=== PATIENT | male | born 1985 | race Caucasian/White ===

== ENCOUNTER 2016-10-08 18:52 | Emergency (ER) | payer SELFPAY ==
[2016-10-08] MEDS ORDERED: LORazepam 2 MG/ML Syringe IVPUSH ONE ×2 (19:22→19:31)
[2016-10-08] MEDS: LORazepam 2 MG/ML Syringe ONE ×2 (19:24→20:09)
[2016-10-08] MEDS ORDERED: levETIRAcetam 500 MG in Sodium Chloride 0.9% 100 ML IV ONE (19:25)
[2016-10-08] MEDS ORDERED: MVI, Adult with Vitamin K 10 ML, Thiamine 100 MG, Folic Acid 1 MG in Lactated Ringers 1... IV ONE ×4 (19:27)
[2016-10-08 19:52] LABS: CHLORIDE,CL 105 mmol/L (101-111); SODIUM,NA 140 mmol/L (135-145)
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
[2016-10-08 20:04] LABS: ACETAMINOPHEN < 10
[2016-10-08 21:27] VITALS: BP 98/62
== END 2016-10-08 21:45 ==
LOC: DL.ED 18:52
DX: R56.9 Unspecified convulsions (principal); R45.851 Suicidal ideations; S40.211A Abrasion of right shoulder, initial encounter; F10.120 Alcohol abuse with intoxication, uncomplicated; Y90.6 Blood alcohol level of 120-199 mg/100 ml; F41.9 Anxiety disorder, unspecified; F17.210 Nicotine dependence, cigarettes, uncomplicated; Y04.0XXA Assault by unarmed brawl or fight, initial encounter
CPT/HCPCS: 36415; 70450; 73030; 80053; 80305; 81001; 82150; 83690; 85025; 96361; 96374; 96375; 99285; G0480; J1953; J2060; J3411; J7050; J7120; J3490

== ENCOUNTER 2016-11-10 16:52 | Emergency (ER) | payer SELFPAY ==
--- NOTE | 2016-11-10 16:58 | EDM.PDOC ---
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 Police report patient has been drinking ETOH and took a "one bottle: of Depakote 250mg and "several" Trazodone tablets of unknown strength. Patient is not willing to provide any history. Old reports indicate patient has history of prior suicide attempt and mental illness. Severity: Severe Improves with: Reports: None Worsens with: Reports: None Associated Symptoms: Reports: No Other Symptoms - Related Data Allergies Allergy/AdvReac Type Severity Reaction Status Date / Time No Known Allergies Allergy Verified 10/08/16 19:02 Home Meds: Home Meds Divalproex Sodium [Divalproex Sodium] 250 mg PO Q8H 11/10/16 [History] FLUoxetine [PROzac] 10 mg PO DAILY 11/10/16 [History] Ibuprofen [Ibuprofen] 11/10/16 [History] Pantoprazole [ProTONIX] 11/10/16 [History] Past Medical History Neurological History: Reports: Seizure 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 Tried many different medications. Currently on nothing. Psychiatric History: Reports: Anxiety Social & Family History - Tobacco Use Smoking Status *Q: Current Every Day Smoker Years of Tobacco use: 10 Packs/Tins Daily: 0.5 Used Tobacco, but Quit: No Second Hand Smoke Exposure: No - Caffeine Use Caffeine Use: Reports: Coffee, Energy Drinks, Soda - Recreational Drug Use Recreational Drug Use: No ED ROS GENERAL - Review of Systems Review Of Systems: See Below (patient unwilling to answer) ED EXAM, BEHAVIORAL HEALTH - Physical Exam Exam: See Below Exam Limited By: No Limitations General Appearance: Alert, WD/WN, No Apparent Distress Eye Exam: Bilateral Eye: Normal Inspection Ears: Normal External Exam, Normal Canal, Hearing Grossly Normal, Normal TMs Nose: Normal Inspection, Normal Mucosa, No Blood Throat/Mouth: Normal Inspection, Normal Lips, Normal Teeth, Normal Gums, Normal Oropharynx, Normal Voice, No Airway Compromise Head: Atraumatic, Normocephalic Neck: Normal Inspection, Supple, Non-Tender, Full Range of Motion Respiratory/Chest: No Respiratory Distress, Lungs Clear, Normal Breath Sounds, No Accessory Muscle Use, Chest Non-Tender Cardiovascular: Normal Peripheral Pulses, Regular Rate, Rhythm, No Edema, No Gallop, No JVD, No Murmur, No Rub GI/Abdominal: Other (mild epigastric tenderness.) Back Exam: Normal Inspection, Full Range of Motion, NT Extremities: Normal Inspection, Normal Range of Motion, Non-Tender, Normal Capillary Refill, No Pedal Edema Neurological: Alert, Normal Mood/Affect, CN II-XII Intact, Normal Cognition, Normal Gait, Normal Reflexes, No Motor/Sensory Deficits, Oriented x 3 Psychiatric: Other (flat affect, depressed mood, uncooperative suicidal.) Skin Exam: Warm, Dry, Intact, Normal color, No rash EKG INTERPRETATION EKG Date: 11/10/16 Time: 17:00 Rhythm: other (sinus rhythm) Rate (beats/min): 89 [place]: normal P-wave: present QRS: normal ST-T: normal QT: normal COURSE, BEHAVIORAL HEALTH COMP - Course Vital Signs: Last Vital Signs Temp 36.7 C 11/10/16 18:06 Pulse 89 11/10/16 18:06 Resp 13 11/10/16 18:06 BP 112/77 11/10/16 18:06 Pulse Ox 99 11/10/16 18:06 Orders, Labs, Meds: Active Orders 24 hr Category Date Time Status Depression Screening, Adult [RC] ASDIRECTED Care 11/10/16 17:02 Active EKG 12 Lead [EKG Documentation Completion] [RC] STAT Care 11/10/16 17:02 Active Peripheral IV Care [RC] . DIRECTED Care 11/10/16 17:03 Active Sodium Chloride 0.9% [Saline Flush] Med 11/10/16 17:03 Active 10 ml FLUSH ASDIRECTED PRN Peripheral IV Insertion Adult [OM.PC] Stat Oth 11/10/16 17:02 Ordered Suicide Precautions [OM.PC] Routine Oth 11/10/16 17:02 Ordered Medication Orders Sodium Chloride (Saline Flush) 10 ml FLUSH ASDIRECTED PRN PRN Reason: Keep Vein Open Last Admin: 11/10/16 18:01 Dose: 10 ml Laboratory Tests 0611/10/16 11/10/16 Range/Units 17:03 17:03 17:14 WBC 5.7 (5.0-10.0) 10^3/uL RBC 5.20 (4.6-6.2) 10^6/uL Hgb 14.9 (14.0-18.0) g/dL Hct 42.3 (40.0-54.0) % MCV 81.3 (80-100) fL MCH 28.7 (27.0-34.0) pg MCHC 35.2 H (33.0-35.0) g/dL Plt Count 258 (150-450) 10^3/uL Neut % (Auto) 61.4 (42.2-75.2) % Lymph % (Auto) 29.2 (20.5-50.1) % [place] % (Auto) 7.7 (2-8) % Eos % (Auto) 1.2 (1.0-3.0) % Baso % (Auto) 0.5 (0.0-1.0) % PT (9.0-12.0) SEC INR (0.9-1.2) APTT (22.0-34.0) SEC Sodium (135-145) mmol/L Potassium (3.6-5.0) mmol/L Chloride (101-111) mmol/L Carbon Dioxide (21.0-31.0) mmol/L Anion Gap BUN (7-18) mg/dL Creatinine (0.6-1.3) mg/dL Est Cr Clr Drug Dosing mL/min Estimated GFR (MDRD) BUN/Creatinine Ratio Glucose (74-105) mg/dL Calcium (8.4-10.2) mg/dl Total Bilirubin (0.2-1.0) mg/dL AST (10-42) IU/L ALT (10-60) IU/L Alkaline Phosphatase (42-121) IU/L Ammonia (11-35) umol/L Troponin I (0.00-0.02) ng/ml Total Protein (6.7-8.2) g/dl Albumin (3.2-5.5) g/dl Globulin Albumin/Globulin Ratio Amylase (28-100) U/L Lipase (22-51) U/L Urine Color Light yellow (YELLOW) Urine Appearance Clear (CLEAR) Urine pH 5.5 (5.0-9.0) Ur Specific [place] <= 1.005 (1.005-1.030) Urine Protein Negative (NEGATIVE) Urine Glucose (UA) Negative (NEGATIVE) Urine Ketones Negative (NEGATIVE) Urine Occult Blood Negative (NEGATIVE) Urine Nitrite Negative (NEGATIVE) Urine Bilirubin Negative (NEGATIVE) Urine Urobilinogen 0.2 (0.2-1.0) mg/dL Ur Leukocyte Esterase Negative (NEGATIVE) Urine RBC Not seen /HPF Urine WBC Not seen (0-5/HPF) /HPF Urine Mucus Rare /LPF Salicylates Urine Opiates Screen Negative (NEGATIVE) Ur Oxycodone Screen Negative (NEGATIVE) Urine Methadone Screen Negative (NEGATIVE) Acetaminophen Ur Barbiturates Screen Negative (NEGATIVE) U Tricyclic Antidepress Negative (NEGATIVE) Ur Phencyclidine Scrn Negative (NEGATIVE) Ur Amphetamine Screen Negative (NEGATIVE) U Methamphetamines Scrn Negative (NEGATIVE) Urine MDMA Screen Negative (NEGATIVE) U Benzodiazepines Scrn Negative (NEGATIVE) Urine Cocaine Screen Negative (NEGATIVE) U Marijuana (THC) Screen Negative (NEGATIVE) Ethyl Alcohol mg/dL 11/10/16 11/10/16 11/10/16 Range/Units 17:14 17:14 17:14 WBC (5.0-10.0) 10^3/uL RBC (4.6-6.2) 10^6/uL Hgb (14.0-18.0) g/dL Hct (40.0-54.0) % MCV (80-100) fL MCH (27.0-34.0) pg MCHC (33.0-35.0) g/dL Plt Count (150-450) 10^3/uL Neut % (Auto) (42.2-75.2) % Lymph % (Auto) (20.5-50.1) % [place] % (Auto) (2-8) % Eos % (Auto) (1.0-3.0) % Baso % (Auto) (0.0-1.0) % PT 10.5 (9.0-12.0) SEC INR 1.0 (0.9-1.2) APTT 24.6 (22.0-34.0) SEC Sodium 137 (135-145) mmol/L Potassium 3.6 (3.6-5.0) mmol/L Chloride 103 (101-111) mmol/L Carbon Dioxide 24.0 (21.0-31.0) mmol/L Anion Gap 13.6 BUN 10 (7-18) mg/dL Creatinine 0.9 (0.6-1.3) mg/dL Est Cr Clr Drug Dosing 101.01 mL/min Estimated GFR (MDRD) > 60 BUN/Creatinine Ratio 11.11 Glucose 100 (74-105) mg/dL Calcium 9.4 (8.4-10.2) mg/dl Total Bilirubin 0.4 (0.2-1.0) mg/dL AST 17 (10-42) IU/L ALT 15 (10-60) IU/L Alkaline Phosphatase 67 (42-121) IU/L Ammonia 33 (11-35) umol/L Troponin I < 0.02 (0.00-0.02) ng/ml Total Protein 7.2 (6.7-8.2) g/dl Albumin 4.5 (3.2-5.5) g/dl Globulin 2.7 Albumin/Globulin Ratio 1.67 Amylase 51 (28-100) U/L Lipase 20 L (22-51) U/L Urine Color (YELLOW) Urine Appearance (CLEAR) Urine pH (5.0-9.0) Ur Specific [place] (1.005-1.030) Urine Protein (NEGATIVE) Urine Glucose (UA) (NEGATIVE) Urine Ketones (NEGATIVE) Urine Occult Blood (NEGATIVE) Urine Nitrite (NEGATIVE) Urine Bilirubin (NEGATIVE) Urine Urobilinogen (0.2-1.0) mg/dL Ur Leukocyte Esterase (NEGATIVE) Urine RBC /HPF Urine WBC (0-5/HPF) /HPF Urine Mucus /LPF Salicylates < 4 Urine Opiates Screen (NEGATIVE) Ur Oxycodone Screen (NEGATIVE) Urine Methadone Screen (NEGATIVE) Acetaminophen < 10 Ur Barbiturates Screen (NEGATIVE) U Tricyclic Antidepress (NEGATIVE) Ur Phencyclidine Scrn (NEGATIVE) Ur Amphetamine Screen (NEGATIVE) U Methamphetamines Scrn (NEGATIVE) Urine MDMA Screen (NEGATIVE) U Benzodiazepines Scrn (NEGATIVE) Urine Cocaine Screen (NEGATIVE) U Marijuana (THC) Screen (NEGATIVE) Ethyl Alcohol 71 mg/dL Medications Generic Name Dose Route Start Last Admin Trade Name Freq PRN Reason Stop Dose Admin Sodium Chloride 10 ml 11/10/16 17:03 11/10/16 18:01 Saline Flush FLUSH 10 ml ASDIRECTED PRN Administration Keep Vein Open Discontinued Medications Generic Name Dose Route Start Last Admin Trade Name Cate PRN Reason Stop Dose Admin Charcoal 50 gm 11/10/16 17:04 11/10/16 17:49 Actidose-Aqua PO 11/10/16 17:05 50 gm ONETIME ONE Administration Sodium Chloride 1,000 mls @ 999 mls/hr 11/10/16 17:04 11/10/16 18:01 Normal Saline IV 11/10/16 18:04 999 mls/hr .BOLUS ONE Administration Departure - Departure Time of Disposition: 19:00 Disposition: DC/Tfer to Acute Hospital 02 Condition: serious Clinical Impression: Suicide attempt by multiple drug overdose Qualifiers: Encounter type: initial encounter Qualified Code(s): T50.902A - Poisoning by unspecified drugs, medicaments and biological substances, intentional self-harm , initial encounter - Discharge Information Forms: ED Department Discharge, Interfacility Transfer EMTALA - My Orders Last 24 Hours: My Active Orders 11/10/16 17:02 Depression Screening, Adult [RC] ASDIRECTED EKG 12 Lead [EKG Documentation Completion] [RC] STAT Peripheral IV Insertion Adult [OM.PC] Stat Suicide Precautions [OM.PC] Routine 11/10/16 17:03 Peripheral IV Care [RC] . DIRECTED Sodium Chloride 0.9% [Saline Flush] 10 ml FLUSH ASDIRECTED PRN - Assessment/Plan Last 24 Hours: My Active Orders 11/10/16 17:02 Depression Screening, Adult [RC] ASDIRECTED EKG 12 Lead [EKG Documentation Completion] [RC] STAT Peripheral IV Insertion Adult [OM.PC] Stat Suicide Precautions [OM.PC] Routine 11/10/16 17:03 Peripheral IV Care [RC] . DIRECTED Sodium Chloride 0.9% [Saline Flush] 10 ml FLUSH ASDIRECTED PRN
[2016-11-10] MEDS ORDERED: Sodium Chloride 0.9% 10 ML Syringe FLUSH PRN (17:03)
[2016-11-10] MEDS ORDERED: Sodium Chloride 0.9% 1,000 ML IV ONE (17:04)
[2016-11-10] MEDS ORDERED: Activated Charcoal/Water Susp 50 GM/240 ML Tube PO ONE (17:04)
[2016-11-10 17:41] LABS: CHLORIDE,CL 103 mmol/L (101-111); SODIUM,NA 137 mmol/L (135-145)
[2016-11-10 17:46] LABS: ACETAMINOPHEN < 10
[2016-11-10 19:08] VITALS: BP 112/69
[2016-11-10] MEDS ORDERED: LORazepam 2 MG/ML Syringe IM ONE (19:10)
[2016-11-10] MEDS ORDERED: diphenhydrAMINE 50 MG/ML SDV IM ONE (19:10)
[2016-11-10] MEDS ORDERED: Haloperidol Lactate 5 MG/ML SDV IM ONE (19:10)
--- NOTE | 2016-12-02 11:43 | EKG ---
11/10/2016 - FRAN CARDENAS - EKG is sinus rhythm with a rate of 89, normal MA interval, normal axis. There is a nonspecific intraventricular conduction delay. EKG otherwise within normal limits. [facility] /[id number]
== END 2016-11-10 19:25 ==
LOC: DL.ED 16:52
DX: T42.6X2A Poisoning by other antiepileptic and sedative-hypnotic drugs, intentional self-harm, initial encounter (principal); F41.9 Anxiety disorder, unspecified; F17.210 Nicotine dependence, cigarettes, uncomplicated; Z79.899 Other long term (current) drug therapy
CPT/HCPCS: 36415; 80053; 80305; 81001; 82140; 82150; 83690; 84484; 85025; 85610; 85730; 93005; 93010; 96360; 96372; 99285; G0480; J1200; J1630; J2060; J7030; J7050

== ENCOUNTER 2017-02-07 16:29 | Emergency (ER) | payer OTHER ==
[2017-02-07] MEDS ORDERED: Lidocaine 2% Jelly 10 ML Urojet MUCMEM ONE (16:39)
[2017-02-07] MEDS ORDERED: LORazepam 1 MG Tab PO ONE (16:40)
[2017-02-07] MEDS ORDERED: Cephalexin 500 MG Cap PO ONE (16:40)
[2017-02-07] MEDS ORDERED: Lidocaine 1% 30 ML SDV INJECT ONE (16:59)
[2017-02-07] MEDS ORDERED: levETIRAcetam 2,000 MG in Sodium Chloride 0.9% 100 ML IV ONE (17:06)
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
[2017-02-07 17:55] LABS: CHLORIDE,CL 105 mmol/L (101-111); SODIUM,NA 138 mmol/L (135-145)
[2017-02-07] MEDS ORDERED: ceFAZolin 1 GM in Premix Bag 1 BAG IV ONE (17:57)
--- NOTE | 2017-02-07 17:59 | EDM.PDOC ---
Scribed by Megan Mcdonald 02/07/17 0181 for Jasbir Barros MD ED HPI GENERAL MEDICAL PROBLEM - General Chief Complaint: Trauma Stated Complaint: BY AMBULANCE Time Seen by Provider: 02/07/17 16:35 Source of Information: Reports: Patient, EMS, RN, RN Notes Reviewed History Limitations: Reports: No Limitations - History of Present Illness INITIAL COMMENTS - FREE TEXT/NARRATIVE: Arrives by ambulance from work with a complaint of left 3rd and 4th finger injuries sustained when his hand went through a conveyer belt that he was attempting to un-jam. Denies any other injury. Paramedics report that the patient had a witnessed seizure for 1 minute just as they arrived at the scene. Patient had a second witnessed seizure upon arrival to the emergency department lasting 3 minutes. Rates pain 10/10. Nothing makes it better or worse. Last tetanus was approximately 5 to 10 years ago. Patient denies tetanus vaccine at this time. 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 Patient has a history of seizure disorder but has chosen not to take seizure medication for the past several months. He does not know when his last seizure was. Onset: Today Location: Reports: Upper Extremity, Right Quality: Reports: Sharp Severity: Severe Improves with: Reports: None Worsens with: Reports: None Associated Symptoms: Reports: No Other Symptoms - Related Data Allergies Allergy/AdvReac Type Severity Reaction Status Date / Time No Known Allergies Allergy Verified 10/08/16 19:02 Home Meds: Home Meds Divalproex Sodium [Divalproex Sodium] 250 mg PO Q8H 11/10/16 [History] FLUoxetine [PROzac] 10 mg PO DAILY 11/10/16 [History] Ibuprofen [Ibuprofen] 800 mg PO Q8H 11/10/16 [History] Pantoprazole [ProTONIX] 40 mg PO DAILY 11/10/16 [History] Past Medical History Gastrointestinal History: Reports: GERD Neurological History: Reports: Seizure 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 Tried many different medications. Currently on nothing. Psychiatric History: Reports: Anxiety Social & Family History - Family History Family Medical History: Noncontributory - Tobacco Use Smoking Status *Q: Current Every Day Smoker Years of Tobacco use: 10 Packs/Tins Daily: 0.5 Used Tobacco, but Quit: No Second Hand Smoke Exposure: No - Caffeine Use Caffeine Use: Reports: Coffee, Energy Drinks, Soda - Recreational Drug Use Recreational Drug Use: No Recreational Drug Type: Reports: Marijuana/Hashish Review of Systems - Review of Systems Review Of Systems: ROS reveals no pertinent complaints other than HPI. ED EXAM, GENERAL - Physical Exam Exam: See Below Exam Limited By: No Limitations General Appearance: Alert, WD/WN, No Apparent Distress Eye Exam: Bilateral Eye: Normal Inspection Ears: Normal External Exam, Normal Canal, Hearing Grossly Normal, Normal TMs Nose: Normal Inspection, Normal Mucosa, No Blood Throat/Mouth: Normal Inspection, Normal Lips, Normal Teeth, Normal Gums, Normal Oropharynx, Normal Voice, No Airway Compromise Head: Atraumatic, Normocephalic Neck: Normal Inspection, Supple, Non-Tender, Full Range of Motion Respiratory/Chest: No Respiratory Distress, Lungs Clear, Normal Breath Sounds, No Accessory Muscle Use, Chest Non-Tender Cardiovascular: Normal Peripheral Pulses, Regular Rate, Rhythm, No Edema, No Gallop, No JVD, No Murmur, No Rub GI/Abdominal: Normal Bowel Sounds, Soft, Non-Tender, No Organomegaly, No Distention, No Abnormal Bruit, No Mass (Male) Exam: Deferred Rectal (Males) Exam: Deferred Back Exam: Normal Inspection, Full Range of Motion, NT Extremities: Other (Left 3rd and 4th fingers with lacerations, contusion and swelling, with visible tender at 4th finger. Distal capillary refill and sensation intact. ) Neurological: Alert, Oriented, CN II-XII Intact, Normal Cognition, No Motor/ Sensory Deficits, Other (seizures x3 since accident.) Psychiatric: Anxious Course - Vital Signs Text/Narrative:: See nurses notes for vitals. - Orders/Labs/Meds Orders: Active Orders 24 hr Category Date Time Status COMPREHENSIVE METABOLIC PN,CMP [CHEM] Stat Lab 02/07/17 17:28 Received CREATINE KINASE,CK [CHEM] Stat Lab 02/07/17 17:28 Received ETHANOL BLOOD MEDICAL [CHEM] Stat Lab 02/07/17 17:28 Received LACTATE DEHYDROGENASE,LDH [CHEM] Stat Lab 02/07/17 17:28 Received ceFAZolin [Ancef] 1 gm Med 02/07/17 17:57 Ordered Premix Bag 1 bag IV ONETIME Medication Orders Cefazolin Sodium/Dextrose 1 gm (/ Premix) 50 mls @ 100 mls/hr IV ONETIME ONE Stop: 02/07/17 18:26 Labs: Laboratory Tests 02/07/17 02/07/17 02/07/17 Range/Units 17:05 17:05 17:28 WBC 11.7 H (5.0-10.0) 10^3/uL RBC 4.77 (4.6-6.2) 10^6/uL Hgb 13.8 L (14.0-18.0) g/dL Hct 39.8 L (40.0-54.0) % MCV 83.4 (80-100) fL MCH 28.9 (27.0-34.0) pg MCHC 34.7 (33.0-35.0) g/dL Plt Count 252 (150-450) 10^3/uL Neut % (Auto) 81.3 H (42.2-75.2) % Lymph % (Auto) 10.3 L (20.5-50.1) % [place] % (Auto) 7.2 (2-8) % Eos % (Auto) 0.9 L (1.0-3.0) % Baso % (Auto) 0.3 (0.0-1.0) % Urine Color Yellow (YELLOW) Urine Appearance Clear (CLEAR) Urine pH 8.0 (5.0-9.0) Ur Specific [place] 1.020 (1.005-1.030) Urine Protein Negative (NEGATIVE) Urine Glucose (UA) Negative (NEGATIVE) Urine Ketones Negative (NEGATIVE) Urine Occult Blood Negative (NEGATIVE) Urine Nitrite Negative (NEGATIVE) Urine Bilirubin Negative (NEGATIVE) Urine Urobilinogen 1.0 (0.2-1.0) mg/dL Ur Leukocyte Esterase Negative (NEGATIVE) Urine RBC 0-5 /HPF Urine WBC 5-10 H (0-5/HPF) /HPF Ur Epithelial Cells Few /HPF Urine Bacteria Few (0-FEW/HPF) /HPF Urine Opiates Screen Negative (NEGATIVE) Ur Oxycodone Screen Negative (NEGATIVE) Urine Methadone Screen Negative (NEGATIVE) Ur Barbiturates Screen Negative (NEGATIVE) U Tricyclic Antidepress Negative (NEGATIVE) Ur Phencyclidine Scrn Negative (NEGATIVE) Ur Amphetamine Screen Negative (NEGATIVE) U Methamphetamines Scrn Negative (NEGATIVE) Urine MDMA Screen Negative (NEGATIVE) U Benzodiazepines Scrn Negative (NEGATIVE) Urine Cocaine Screen Negative (NEGATIVE) U Marijuana (THC) Screen Negative (NEGATIVE) Meds: Medications Generic Name Dose Route Start Last Admin Trade Name Freq PRN Reason Stop Dose Admin Cefazolin Sodium/Dextrose 1 gm 50 mls @ 100 mls/hr 02/07/17 17:57 / Premix IV 02/07/17 18:26 ONETIME ONE Discontinued Medications Generic Name Dose Route Start Last Admin Trade Name Freq PRN Reason Stop Dose Admin Diazepam Confirm 02/07/17 16:52 02/07/17 16:57 Valium Administered 02/07/17 16:53 Not Given Dose 10 mg .ROUTE .STK-MED ONE Diazepam Confirm 02/07/17 16:52 02/07/17 16:49 Valium Administered 02/07/17 16:53 10 mg Dose Administration 10 mg .ROUTE .STK-MED ONE Diazepam 10 mg 02/07/17 17:38 02/07/17 17:39 Valium IVPUSH 02/07/17 17:39 10 mg ONETIME ONE Administration Diazepam Confirm 02/07/17 17:37 02/07/17 17:56 Valium Administered 02/07/17 17:38 Not Given Dose 10 mg .ROUTE .STK-MED ONE Levetiracetam 2,000 mg/ Sodium 120 mls @ 400 mls/hr 02/07/17 17:06 02/07/17 17:51 Chloride IV 02/07/17 17:20 400 mls/hr ONETIME ONE Administration Lidocaine HCl 30 ml 02/07/17 16:59 02/07/17 17:40 Xylocaine-Mpf 1% INJECT 02/07/17 17:00 20 ml ONETIME ONE Administration Lorazepam 1 mg 02/07/17 16:40 02/07/17 16:56 Ativan PO 02/07/17 16:41 Not Given ONETIME ONE - Radiology Interpretation Free Text/Narrative:: Left fingers x-ray: Pronounced soft tissue swelling middle finger, laceration soft tissue radial aspect of the interphalangeal joint, and nondisplaced corner fracture ulnar aspect, base of the middle phalanx, third finger. Soft tissue swelling adjacent second and fourth digits but no foreign body, other fracture or dislocation of the metacarpal bones or fingers. See rad report. - Re-Assessments/Exams Free Text/Narrative Re-Assessment/Exam: 02/07/17 16:53 While in the ER, patient had a 3 minute witnessed seizure, which resolved spontaneously just as Diazepam 10mg IVP was about to be administered. Departure - Departure Time of Disposition: 17:52 Disposition: DC/Tfer to Acute Hospital 02 Condition: Fair Clinical Impression: Seizures Open fracture of finger of left hand Qualifiers: Encounter type: initial encounter Finger: middle finger Phalanx: middle Fracture alignment: nondisplaced Qualified Code(s): S62.653B - Nondisplaced fracture of medial phalanx of left middle finger, initial encounter for open fracture Laceration of finger of left hand Qualifiers: Encounter type: initial encounter Finger: middle finger Damage to nail status: without damage Foreign body presence: unspecified Qualified Code(s): S61.213A - Laceration without foreign body of left middle finger without damage to nail, initial encounter - Discharge Information Forms: ED Department Discharge, Interfacility Transfer EMTALA - My Orders Last 24 Hours: My Active Orders 02/07/17 17:28 COMPREHENSIVE METABOLIC PN,CMP [CHEM] Stat CREATINE KINASE,CK [CHEM] Stat ETHANOL BLOOD MEDICAL [CHEM] Stat LACTATE DEHYDROGENASE,LDH [CHEM] Stat 02/07/17 17:57 ceFAZolin [Ancef] 1 gm Premix Bag 1 bag IV ONETIME - Assessment/Plan Last 24 Hours: My Active Orders 02/07/17 17:28 COMPREHENSIVE METABOLIC PN,CMP [CHEM] Stat CREATINE KINASE,CK [CHEM] Stat ETHANOL BLOOD MEDICAL [CHEM] Stat LACTATE DEHYDROGENASE,LDH [CHEM] Stat 02/07/17 17:57 ceFAZolin [Ancef] 1 gm Premix Bag 1 bag IV ONETIME I have read and agree with the documentation that has been completed regarding this visit. By signing this record, I attest that the documentation was completed in my physical presence and is an accurate record of the encounter.
[2017-02-07] MEDS ORDERED: Diphtheria,Pertussis(Acell),Tetanus Vaccine 0.5 ML SDV IM ONE (18:04)
[2017-02-07 18:48] VITALS: BP 128/78
== END 2017-02-07 18:40 ==
LOC: DL.ED 16:29
DX: S62.653B Nondisplaced fracture of middle phalanx of left middle finger, initial encounter for open fracture (principal); R56.9 Unspecified convulsions; K21.9 Gastro-esophageal reflux disease without esophagitis; F17.210 Nicotine dependence, cigarettes, uncomplicated; F41.9 Anxiety disorder, unspecified; Z79.899 Other long term (current) drug therapy; W22.8XXA Striking against or struck by other objects, initial encounter; S61.215A Laceration without foreign body of left ring finger without damage to nail, initial encounter
CPT/HCPCS: 36415; 73140; 80053; 80305; 81001; 82550; 83615; 85025; 90471; 90715; 96365; 96375; 99285; G0480; J0690; J1953; J3360; J7050